=== PATIENT | female | born 1980 | race African-American/Black ===

== ENCOUNTER 2020-01-07 11:59 | Emergency (ER) | payer MEDICAID ==
[~2020-01-07] VITALS: Ht 160 cm; Wt 71.0 kg
[~2020-01-07 11:59] MED LIST: FERR-63 PO; IBUP-2029 PO; MULT-1146 PO
[2020-01-07] MEDS ORDERED: IBUPROFEN 600MG TABLET PO ONE (13:00)
[2020-01-07 13:54] VITALS: BP 148/97
== END 2020-01-07 13:56 | disposition home or self-care (01) ==
LOC: ER 12:27
DX: S16.1XXA Strain of muscle, fascia and tendon at neck level, initial encounter (principal); V49.9XXA Car occupant (driver) (passenger) injured in unspecified traffic accident, initial encounter; Y93.9 Activity, unspecified; Y92.410 Unspecified street and highway as the place of occurrence of the external cause
CPT/HCPCS: 81025; 99283